=== PATIENT | male | born 1975 | race Caucasian/White ===

== ENCOUNTER 2023-04-12 10:23 | Emergency (ER) | payer BC, OTHER ==
[~2023-04-12] VITALS: Ht 167.6 cm; Wt 107.0 kg
[2023-04-12 11:08] VITALS: BP 151/82
[2023-04-12] MEDS ORDERED: KETOROLAC TROMETH 60MG/2ML VIAL IM ONE (11:15)
[2023-04-12] MEDS ORDERED: PRED20TA2 PO (12:19)
[2023-04-12] MEDS ORDERED: TRAM50TA2 PO (12:19)
[2023-04-12] MEDS ORDERED: HYDROcodone-ACET 10/325MG TAB PO ONE (12:30)
== END 2023-04-12 12:37 | disposition home or self-care (01) ==
LOC: ER 10:23
DX: M51.36 Other intervertebral disc degeneration, lumbar region (principal); M54.16 Radiculopathy, lumbar region; Z88.0 Allergy status to penicillin
CPT/HCPCS: 72100; 73562; 96372; 99284; J1885